=== PATIENT | female | born 1935 | race Caucasian/White ===

== ENCOUNTER → 2016-09-18 | Outpatient (CLI) | payer MEDICARE, MEDICAID ==
[~2016-09-18] MED LIST: ACET-789 PO; ACET650T2 PO; ADV500-14 IH; ALB0.5V INH; ATOR80TA PO; BISO10TA8 PO; CIPR-226 PO; CITA20TA12 PO; CLIN-78 PO; DEME300T PO; EZET10TA5 PO; FENO160T PO; GUAI100L2 PO; GUAI118S37 PO; HYDR-3882 GT; IPRA0.2S50 IH; IRBE150T50 PO; LEVO500T16 PO; MAGN400O7 PO; METAMUCIL1 EACH PO; METF500T3 PO; NYST1000 PO; POLY17PO2 PO; PRED20TA PO; SITA100T PO; TIOT18CA IH; TRAZ-28 GT; [UNRECOGNIZED DRUG - CODE] PO; [UNRECOGNIZED DRUG - CODE] PO; oxygen
--- NOTE | 2016-09-18 12:32 | Diagnostic Imaging Report ---
PROCEDURE: US abdomen complete. TECHNIQUE: Multiple real-time grayscale images were obtained over the abdomen in various projections. INDICATION: Right upper quadrant pain. COMPARISON: None available. FINDINGS: The liver demonstrates mild diffuse increased echogenicity. There is a simple anechoic cyst in the superior aspect of the liver measuring up to 1.5 cm. There appears to be mild diffuse intrahepatic bile duct dilatation. The gallbladder is distended without gallstones, wall thickening, or pericholecystic fluid. The common bile duct measures up to 0.3 cm in diameter. No intrahepatic biliary dilation. The visualized portions of the pancreas are normal. Portions of the head and tail are obscured by overlying bowel gas. The kidneys are normal in size. No hydronephrosis, shadowing calculi, or suspicious mass lesion. The spleen is normal in size and without focal lesion. The aorta and IVC are normal in caliber where seen. IMPRESSION: 1. Diffuse hepatic steatosis. 2. Normal gallbladder and normal caliber bile duct. 3. Suggestion of mild intrahepatic biliary duct dilatation. The patient has persistent right upper quadrant pain and this is not accounted for by hepatic steatosis. Consider CT abdomen and pelvis for further evaluation. Dictated by: Dictated on workstation # [id number]
== END ==
LOC: RAD 09:04
PROVIDERS: ATTEND Family Medicine
DX: R10.11 Right upper quadrant pain (principal); K76.0 Fatty (change of) liver, not elsewhere classified
CPT/HCPCS: 76700